=== PATIENT | male | born 1955 | race Caucasian/White ===

== ENCOUNTER 2019-04-26 08:32 | Emergency (ER) | payer MEDICARE, OTHER ==
[2019-04-26] MEDS ORDERED: NITROGLYCERIN 0.4 MG 25 EA TAB SL ONE (08:49)
[2019-04-26] MEDS ORDERED: SODIUM CHLORIDE 0.9% (FLUSH) 10 ML SYG IV PRN (08:49)
[2019-04-26] MEDS ORDERED: ONDANSETRON INJ 4 MG/2 ML VIAL IV ONE ×2 (08:49→08:50)
[2019-04-26] MEDS ORDERED: ASPIRIN TABLET 325 MG TAB PO ONE (08:49)
[2019-04-26] MEDS ORDERED: methylPREDNISolone SODIUM SUC 125 MG/2 ML VIAL IM ONE (08:55)
[2019-04-26] MEDS ORDERED: IPRATROPIUM/ALBUTEROL 3 ML VIAL NEB ONE (08:55)
[2019-04-26] MEDS ORDERED: ASPIRIN (CHEWABLE) 81 MG TAB PO ONE (09:02)
--- NOTE | 2019-04-26 09:13 | RAD ---
EXAM DESCRIPTION: Chest,2 Views CLINICAL HISTORY: 63 years Male, SOB COMPARISON: 21 September 2008 TECHNIQUE: PA/lateral FINDINGS: Mild hyperexpansion the chest is observed. The lungs are free of acute infiltrate. The heart is within range of normal. No pleural fluid is seen. IMPRESSION: Hyperexpansion of the chest is observed suggestive of chronic obstructive pulmonary disease or asthma. No acute infiltrate is detected. Electronically signed by: Tejas Mayberry MD 04/26/2019 9:11 AM [facility]
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
[2019-04-26] MEDS ORDERED: methylPREDNISolone SODIUM SUC 125 MG/2 ML VIAL IV ONE (09:19)
[2019-04-26 10:04] VITALS: BP 120/69; TEMP 97.1; O2SAT 97
== END 2019-04-26 10:03 | disposition home or self-care (01) ==
LOC: ER 08:32
DX: J44.0 Chronic obstructive pulmonary disease with (acute) lower respiratory infection (principal); J20.9 Acute bronchitis, unspecified; R11.0 Nausea; R10.11 Right upper quadrant pain; Z87.891 Personal history of nicotine dependence; Z79.899 Other long term (current) drug therapy; Z79.82 Long term (current) use of aspirin; Z88.8 Allergy status to other drugs, medicaments and biological substances
CPT/HCPCS: 36415; 71046; 80048; 82550; 82553; 83690; 83880; 84484; 85025; 85610; 85730; 93005; 94640; 94760; J2405; J2930; J7620